=== PATIENT | female | born 1990 | race Caucasian/White ===

== ENCOUNTER 2017-06-23 22:38 | Outpatient (CLI) | payer BC ==
[2017-06-23 23:51] VITALS: BP 143/91; PULSE 98; RESP 16; TEMP 97.6
[2017-06-23 23:58] LABS: Appearance,Urine Cloudy (Clear); Bilirubin,Urine Negative (Negative); Glucose,Urine (UA) Negative (Negative); Ketones,Urine Negative (Negative); Leukocyte Esterase,Urine Negative (Negative); Nitrite,Urine Negative (Negative); Particle Count 5883; Protein,Urine Trace (Negative); RBC,Urine <1 /hpf (0-5); Specific Gravity,Urine 1.013 (1.001-1.035); Squamous Epithelial Cell,Urine 7 /hpf (0-4); UA Billing (MACRO vs. MICRO) MICRO; Urobilinogen,Urine <2.0 mg/dL (<2.0); WBC,Urine 1 /hpf (0-5)
[2017-06-23 23:59] LABS: Basophils % (A) 0 %; CH 32.2; CHCM 34.7; Eosinophils # (A) 0.2 k/uL (0-0.7); Eosinophils % (A) 1 %; HCT 35.6 % (34.0-46.0); HDW 2.71; Luc # (Auto) 0.24; Luc % (Auto) 2; Lymphocytes # (A) 2.4 k/uL (1.0-4.8); Lymphocytes % (A) 17 %; MCH 31.5 pg (25.0-35.0); MCHC 33.7 g/dL (31.0-37.0); MCV 93.6 fL (80.0-100.0); Monocytes # (A) 0.8 k/uL (0-1.0); Monocytes % (A) 6 %; Neutrophils # (A) 10.4 k/uL (1.3-7.7); Neutrophils % (A) 74 %; RBC 3.81 m/uL (3.80-5.40); RDW 14.2 % (11.5-15.5); WBC 14.1 k/uL (3.8-10.6); WBC (Perox) 15.09
[2017-06-24 00:10] LABS: ALT 35 U/L (9-52); AST 17 U/L (14-36); Blood Urea Nitrogen 5 mg/dL (7-17); LDH 394 U/L (313-618); Non-African American GFR(MDRD) >60 (>60 ml/min/1.73 sqM); Uric Acid 4.1 mg/dL (3.7-7.4)
--- NOTE | 2017-06-25 11:30 | P.MSEPDOC ---
Presenting Problems - Arrival Data Date of Arrival on Unit: 06/23/17 Time of Arrival on Unit: 22:38 Mode of Transport: Ambulatory - Complaint OB-Reason for Admission/Chief Complaint: Possible Onset of Labor, Rule Out SROM , Pain Comment: Patient states she started cindi regularly about every 3 minutes at home is unsure if her water broke around 2130 this evening because her panty liner was wet at this time when she went to the bathroom Medical History - Information : 2 Para: 1 Term: 1 : 0 Abortions: Spontaneous or Elective: 0 Number of Living Children: 1 - Gestational Age Gestational Age by ASHLEY (wks/days): 38 Weeks and 5 Days Review of Systems - Review of Systems Constitutional: No problems Breast: No problems ENT: No problems Cardiovascular: No problems Respiratory: No problems Gastrointestinal: No problems Genitourinary: No problems Musculoskeletal: No problems Neurological: No problems Skin: No problems Vital Signs - Temperature Temperature: 97.6 F Temperature Source: Temporal Artery Scan - Pulse Pulse Oximetery Pulse Rate: 98 Pulse Assessment Method: Automatic Cuff - Respirations Respiratory Rate: 16 Oxygen Delivery Method: Room Air - Blood Pressure Sitting Blood Pressure: 143/91 Blood Pressure Mean: 108 Blood Pressure Source: Automatic Cuff Medical Screen Scoring (Pre) - Cervical Exam Dilation: 1-3 cm = 1 Membranes: Intact - Uterine Contractions Frequency: > 5 minutes apart = 1 Duration: > 40 seconds = 2 Intensity: N/A - Maternal Vital Signs Maternal Temperature: N/A Maternal Blood Pressure: N/A Signs of Preeclampsia: N/A Maternal Respirations: N/A - Maternal Trauma Maternal Trauma: N/A - Assessment Baseline FHR: 130 Heart Rate - NICHD Category: Category I (Normal) = 0 NST: Reactive Position: N/A Station: N/A - Total Score Total Score (Pre): 4 - Level of Risk Level of Risk: Low (0-5) Physician Notification (Pre) - Physician Notified Physician Notified Date: 06/23/17 Physician Notified Time: 23:22 Physician/Practitioner Notifed:: Dr. Win New Order Received: Yes - Notification Comment Comment: orders given for PIH labs; CBC, Uric Acid, ALT, AST, BUN, Creatinine, LDH, and Urinalysis. Report lab findings back to physician. Physician called back at 0021 with report on PIH labs, states okay to discharge patient home with instructions at this time, patient to return to the office in the am for a blood pressure recheck. States no need to recheck cervix at this time. Disposition - Disposition OB Disposition: Discharge to home, Written follow up instructions reviewed Discharge Date: 06/24/17 Discharge Time: 00:30 I agree with the RN Medical Screening Exam: Yes Risk & Benefit of care provided described in d/c instruction: Yes Diagnosis: GESTATIONAL HTN W/O SIGNIFICANT PROTEINURIA, THIRD TRIMESTER
== END 2017-06-24 00:30 | disposition home or self-care (01) ==
LOC: FBPOP 22:38
PROVIDERS: ATTEND Obstetrics & Gynecology
DX: O13.4 Gestational [pregnancy-induced] hypertension without significant proteinuria, complicating childbirth (principal); Z3A.38 38 weeks gestation of pregnancy
CPT/HCPCS: 59025; 81001; 82565; 83615; 84112; 84450; 84460; 84520; 84550; 85025; 99215

== ENCOUNTER 2017-06-28 06:00 | Inpatient (IN) | payer BC ==
[2017-06-28 06:49] VITALS: BMI 36.8
[2017-06-28] MEDS ORDERED: LIDOCAINE 1% (PF) 10 MG/ML (30 ML SDV) SQ PRN (06:49)
[2017-06-28] MEDS ORDERED: CARBOPROST TROMETHAMINE 250 MCG/ML 1 ML AMP IM PRN (06:49)
[2017-06-28] MEDS ORDERED: OXYTOCIN 10 UNIT/ML 1 ML VIAL IM PRN (06:49)
[2017-06-28] MEDS ORDERED: TERBUTALINE 1 MG/ML VIAL SQ PRN (06:49)
[2017-06-28] MEDS ORDERED: METHYLERGONOVINE 0.2 MG/ML 1 ML AMP IM PRN (06:49)
[2017-06-28] MEDS: LACTATED RINGERS 1,000 ML IV SCH ×2 (06:59→09:37)
[2017-06-28] MEDS ORDERED: OXYTOCIN 20 UNITS/1000 ML NS 1,000 ML IV SCH (07:00)
[2017-06-28 07:04] LABS: Basophils % (A) 0 %; CH 31.5; CHCM 33.8; Eosinophils # (A) 0.2 k/uL (0-0.7); Eosinophils % (A) 1 %; HCT 35.4 % (34.0-46.0); HDW 2.74; Luc # (Auto) 0.23; Luc % (Auto) 2; Lymphocytes # (A) 2.7 k/uL (1.0-4.8); Lymphocytes % (A) 17 %; MCH 31.8 pg (25.0-35.0); MCHC 33.9 g/dL (31.0-37.0); MCV 93.7 fL (80.0-100.0); Mean Platelet Volume 7.4; Monocytes # (A) 0.6 k/uL (0-1.0); Monocytes % (A) 4 %; Neutrophils # (A) 12.1 k/uL (1.3-7.7); Neutrophils % (A) 77 %; RBC 3.78 m/uL (3.80-5.40); WBC 15.8 k/uL (3.8-10.6); WBC (Perox) 15.91
--- NOTE | 2017-06-28 07:35 | P.HPOB ---
History of Present Illness H&P Date: 06/28/17 Chief Complaint: Here for induction of labor, mild PIH This is a 27-year-old white female 2 para 1001 EDC 07/04/2017 at 39-2/7 weeks' gestation. Patient presents for elective induction of labor, with mild PIH. has otherwise been unremarkable. Fetus is been active throughout the . She denies uterine contractions, fluid leakage, or vaginal bleeding. Past medical history is significant for attention deficit hyperactivity disorder , and acid reflux. Past surgical history cholecystectomy 2014. Current medications dye clean just twice daily, [place] vitamins daily, probiotic daily, Zantac 150 milligrams daily, labetalol 100 mg twice daily started 2 days ago, last took last night. ALLERGIES none known. Family history significant for breast cancer diabetes and hypertension. Social history patient is , she works at a local restaurant, she has never been a smoker, she denies alcohol or drug use with the . history is significant for blood typ A+, rubella status immune. VDRL testing, urine culture, hepatitis B surface antigen, HIV testing, gonorrhea and chlamydia cultures, group B strep cultures all negative. One-hour Glucola 111. On exam this is a pleasant white female, she is 5 foot 3 inches, 208 pounds, blood pressure 142/76 on admission. The general physical exam is within normal limits. The chest is clear in all nuñez. The extremities reveal no edema. She is having mild uterine contractions every 4-5 minutes apart spontaneously. heart rate is in the 130s with frequent accelerations, consistent with reactive NST. Cervix is 4 cm dilated, 70% effaced, -2 station, vertex presentation, anterior, soft. Artificial amniorrhexis reveals clear fluid. Impression: 39-2/7 weeks intrauterine , favorable multiparous cervix, here for induction of labor with mild PIH, blood pressure reassuring this morning. Plan: Oxytocin per hospital protocol. Close maternal and surveillance. Anticipate normal spontaneous vaginal delivery. Past Medical History Past Medical History: GERD/Reflux Additional Past Medical History / Comment(s): HX OF ANEMIA. History of Any Multi-Drug Resistant Organisms: None Reported Past Surgical History: No Surgical Hx Reported Additional Past Surgical History / Comment(s): UPPER ENDOSCOPY IN DECEMBER 2014 ONLY. Past Anesthesia/Blood Transfusion Reactions: No Reported Reaction Additional Past Anesthesia/Blood Transfusion Reaction / Comment(s): HAS NEVER RECEIVED ANESTHESIA Past Psychological History: No Psychological Hx Reported Smoking Status: Never smoker Past Alcohol Use History: Rare Past Drug Use History: None Reported - Past Family History Mother Family Medical History: No Reported History Medications and Allergies Home Medications Medication Instructions Recorded Confirmed Type Ranitidine HCl [Zantac] 150 mg PO BID 12/28/14 06/28/17 History Pnv No.95/Ferrous Fum/Folic AC 1 tab PO DAILY 06/23/17 06/28/17 History [ Multivitamin Tablet] Labetalol [Trandate] 100 mg PO BID 06/28/17 06/28/17 History Allergies Allergy/AdvReac Type Severity Reaction Status Date / Time No Known Allergies Allergy Verified 06/23/17 22:40 Exam - Vital Signs Vital signs: Vital Signs Temp Pulse Resp BP 06/28/17 06:26 98.7 F 90 16 142/76 Intake and Output 06/27/17 06/28/17 06/28/17 22:59 06:59 14:59 Other: Weight 94.347 kg Results Result Diagrams: 06/28/17 06:45 Abnormal Lab Results - Last 24 Hours (Table) 06/28/17 Range/Units 06:45 WBC 15.8 H (3.8-10.6) k/uL RBC 3.78 L (3.80-5.40) m/uL Neutrophils # 12.1 H (1.3-7.7) k/uL
[2017-06-28 07:55] LABS: INR 0.9 (<1.2); Prothrombin Time 9.6 sec (9.0-12.0)
[2017-06-28] MEDS ORDERED: SODIUM CHLORIDE 0.9% 100 ML BAG ONE (09:55)
[2017-06-28] MEDS ORDERED: BUPIVACAINE (PF) 0.25% 30 ML VIAL ONE (09:55)
[2017-06-28] MEDS ORDERED: fentaNYL (PF) 50 MCG/ML 5 ML AMP ONE (09:55)
[2017-06-28] MEDS ORDERED: LANOLIN CREAM 5 GM TUBE TOPICAL PRN (11:10)
[2017-06-28] MEDS ORDERED: diphenhydrAMINE 50 MG/ML 1 ML VIAL IVP PRN ×2 (11:10)
[2017-06-28] MEDS ORDERED: HYDROCORTISONE 2.5% RECTAL CREAM 30 GM TUBE RECTAL PRN (11:10)
[2017-06-28] MEDS ORDERED: BENZOCAINE/MENTHOL SPRAY 1 GM/SPRAY AEROSOL TOPICAL PRN (11:10)
[2017-06-28] MEDS ORDERED: Acetaminophen-Codeine 300-30mg TAB PO PRN (11:10)
[2017-06-28] MEDS ORDERED: diphenhydrAMINE 25 MG CAP PO PRN (11:10)
[2017-06-28] MEDS ORDERED: SIMETHICONE 80 MG CHEWABLE PO PRN (11:10)
[2017-06-28] MEDS ORDERED: diphenhydrAMINE ELIXIR 25 MG/10 ML CUP PO PRN (11:10)
[2017-06-28] MEDS ORDERED: WITCH HAZEL 1 EACH MED..PAD TOPICAL PRN (11:10)
[2017-06-28] MEDS ORDERED: diphenhydrAMINE 50 MG CAP PO PRN (11:10)
[2017-06-28] MEDS ORDERED: ZOLPIDEM 5 MG TAB PO PRN (11:10)
--- NOTE | 2017-06-28 11:10 | P.PROBDLV ---
Vaginal Delivery Note - . Vaginal Delivery Note: This is a 27-year-old white female 2 para 1001 EDC 07/03/2017 at 39-2/7 weeks' gestation. Patient presented for induction for mild -induced hypertension, just started oral labetalol 3 days ago. Admitting blood pressure 140/76. She denies headache visual changes or right upper quadrant pain. Fetus is been active throughout the . She denies vaginal bleeding or fluid leakage. Please see my dictated history and physical for details. Upon admission patient 's artificial amniorrhexis revealed clear fluid, she was 4 cm dilated. Oxytocin was started and titrated per hospital protocol. She requested epidural and this was placed without difficulty. She progressed through the first stage of labor easily, became completely dilated at 1047 hrs. The perineal body was prepped and draped in usual sterile fashion. With excellent maternal expulsive efforts the 's head delivered occiput anterior and restituted accordingly. There was no nuchal cord noted. The left or anterior shoulder was delivered from underneath the pubic symphysis at which time the oropharynx, nasopharynx, and external nares were bulb suctioned on the perineal body. Patient was officially delivered of a liveborn male at 1055 hrs. Umbilical cord was doubly clamped and ligated, he was handed to waiting nurses for evaluation, scores of 9 and 9 at one and 5 minutes respectively were given. The uterus is then massaged. The placenta delivered spontaneously, it was inspected and noted to be intact with trivascular cord at 1057 hrs. It is being sent to pathology for history of mild PIH. The uterus is then massaged. Inspection of the cervix, vagina, perineum, periurethral, and perirectal areas reveals a very small first-degree perineal laceration at 6:00. This is reapproximated with a single [id number] suture of 3-0 Vicryl. Estimated blood loss 300 mL's. All sponge needle and enhancement counts are correct at the end of the procedure. weighs 3420 g or 7 lbs. 9 oz. They are requesting circumcision further infant son. We will monitor blood pressures now that the patient has delivered and make a decision regarding antihypertensive medications accordingly.
[2017-06-28] MEDS: IBUPROFEN 600 MG TAB PO PRN ×2 (12:03→19:57)
[2017-06-28] MEDS: ACETAMINOPHEN TAB 325 MG TAB PO PRN (18:04)
[2017-06-28] MEDS: SENNOSIDES-DOCUSATE SODIUM 1 EACH TAB PO SCH (19:56)
[2017-06-28] MEDS ORDERED: LABETALOL 100 MG TAB PO PRN (22:18)
--- NOTE | 2017-06-29 11:32 | P.DS ---
Providers Date of admission: 06/28/17 06:21 Expected date of discharge: 06/29/17 Attending physician: Elda Gale Primary care physician: Levi Polanco [facility] Course: This is a 27-year-old white female 2 para 1001 EDC 07/03/2017 at 39-2/7 weeks' gestation. Patient presented for induction for mild -induced hypertension over the past several days. Fetus is been active throughout the . Blood type A positive, rubella status immune, group B strep cultures negative. Please see dictated history and physical for details. Blood pressure on admission 142/76. Artificial amniorrhexis revealed clear fluid. Epidural was placed per her request. She went on to swiftly deliver a liveborn male with scores of 9 and 9 at one and 5 minutes respectively. Infant weighed 7 lbs. 9 oz. or 3420 g. Estimated blood loss 300 mL's. There was a small first-degree perineal laceration easily repaired. Please see my dictated delivery note for details. This morning the patient is doing well. She had emesis 1 after pain medication , no nausea or vomiting at this time. She is feeling somewhat anxious, in tearful to go home to her 3-year-old child. Her bleeding is minimal, perineal body is intact, extremities are revealing +1 edema, 2+ reflexes, no clonus. Chest is clear in all nuñez. The patient denies headache visual changes or right upper quadrant pain. Blood pressure is 130s to 140s over 70s to 80s. Pulse is 70-80. Breast-feeding is going well. Napoleon circumcision will be performed at this time. I feel patient is in good condition for discharge home later today. I have reminded her no intercourse tampons or douching. She will be aware and contact me with any headaches, visual changes, or right upper quadrant pain. She will follow-up in the office with me in 1 week for blood pressure check. We have briefly contemplated options for contraception and we will discuss this further in the office. Call with any fevers shakes or chills, foul smelling or copious lochia, passage of large blood clots, with any pain not alleviated by over-the- counter products, or indeed with any concerns. We will begin Zoloft 50 mg once daily at this time, a prescription has been provided for same. Patient has no suicidal or homicidal ideation, chest is somewhat anxious to go home and has a history of previous SSRI use. Patient Condition at Discharge: Good Plan - Discharge Summary New Discharge Prescriptions: No Action Ranitidine HCl [Zantac] 150 mg PO BID Pnv No.95/Ferrous Fum/Folic AC [ Multivitamin Tablet] 1 tab PO DAILY Labetalol [Trandate] 100 mg PO BID Discharge Medication List Ranitidine HCl [Zantac] 150 mg PO BID 12/28/14 [History] Pnv No.95/Ferrous Fum/Folic AC [ Multivitamin Tablet] 1 tab PO DAILY [History] Labetalol [Trandate] 100 mg PO BID 06/28/17 [History]
[2017-06-29] MEDS: IBUPROFEN 600 MG TAB PO PRN (12:50)
[2017-06-29] MEDS: ACETAMINOPHEN TAB 325 MG TAB PO PRN (17:42)
[2017-06-29] MEDS: SENNOSIDES-DOCUSATE SODIUM 1 EACH TAB PO SCH (17:42)
[2017-06-29] MEDS ORDERED: SERTRALINE 50 MG TAB PO SCH (19:00)
[2017-06-29] MEDS ORDERED: NIFEdipine XL 30 MG TAB.ER.24 PO SCH (20:15)
[2017-06-29] MEDS: NIFEdipine XL 30 MG TAB.ER.24 PO SCH (20:59)
[2017-06-30] MEDS: IBUPROFEN 600 MG TAB PO PRN ×2 (00:17→14:59)
[2017-06-30] MEDS: SENNOSIDES-DOCUSATE SODIUM 1 EACH TAB PO SCH ×2 (00:38→07:40)
[2017-06-30 07:37] VITALS: RESP 18
--- NOTE | 2017-06-30 08:03 | P.DS ---
Providers Date of admission: 06/28/17 06:21 Expected date of discharge: 06/30/17 Attending physician: Elda Gale Primary care physician: Levi A [facility] Course: This is an addendum to the previously dictated discharge summary from yesterday. Patient was just started on Procardia XL 30 mg yesterday for mildly elevated blood pressures. Blood pressures remained 140s over 90s, and the patient did have emesis. Decision was made to hold the discharge until this morning. Patient's blood pressures continued to be 130s to 140s over 80s to 90s. She however feels better, nausea has improved. She slept through the night. She denies headache visual changes or right upper quadrant pain. Zoloft was started as well yesterday, 50 mg once daily. On exam patient has minimal peripheral edema, +1 reflexes, fundus firm and in the midline, symmetric and 18 week size. The second dose of Procardia will be given this morning. My plan is for discharge home later today. Patient has a stable manometer at home and will take her blood pressures twice daily. She will call me if they are consistently greater than 140s systolic, or 90s diastolic. She will call me with any fever shakes or chills, foul smelling or copious lochia, with any headaches, visual changes, or right upper quadrant pain. I will see the patient in the office in 1 week with her blood pressure log for further recommendations, or as clinically indicated. Patient Condition at Discharge: Good Plan - Discharge Summary New Discharge Prescriptions: No Action Ranitidine HCl [Zantac] 150 mg PO BID Pnv No.95/Ferrous Fum/Folic AC [ Multivitamin Tablet] 1 tab PO DAILY Labetalol [Trandate] 100 mg PO BID Discharge Medication List Ranitidine HCl [Zantac] 150 mg PO BID 12/28/14 [History] Pnv No.95/Ferrous Fum/Folic AC [ Multivitamin Tablet] 1 tab PO DAILY [History] Labetalol [Trandate] 100 mg PO BID 06/28/17 [History] Follow up Appointment(s)/Referral(s): Elda Gale MD [STAFF PHYSICIAN] - 1 Week Discharge Disposition: HOME SELF-CARE
[2017-06-30] MEDS: NIFEdipine XL 30 MG TAB.ER.24 PO SCH (08:19)
[2017-06-30] MEDS: ACETAMINOPHEN TAB 325 MG TAB PO PRN (10:41)
[2017-06-30 12:05] VITALS: BP 133/69; PULSE 93; TEMP 98.2
== END 2017-06-30 15:50 | disposition home or self-care (01) | DRG 775 ==
LOC: 4FBP 06:21
PROVIDERS: ADMIT Obstetrics & Gynecology; ATTEND Obstetrics & Gynecology
PROC: 10E0XZZ Delivery of Products of Conception, External Approach (ICD-10-PCS; principal; 2017-06-28)
PROC: 0HQ9XZZ Repair Perineum Skin, External Approach (ICD-10-PCS; 2017-06-28)
PROC: 3E033VJ Introduction of Other Hormone into Peripheral Vein, Percutaneous Approach (ICD-10-PCS; 2017-06-28)
PROC: 00HU33Z Insertion of Infusion Device into Spinal Canal, Percutaneous Approach (ICD-10-PCS; 2017-06-28)
DX: O13.4 Gestational [pregnancy-induced] hypertension without significant proteinuria, complicating childbirth (principal); O99.344 Other mental disorders complicating childbirth; F90.9 Attention-deficit hyperactivity disorder, unspecified type; O99.62 Diseases of the digestive system complicating childbirth; K21.9 Gastro-esophageal reflux disease without esophagitis; O70.0 First degree perineal laceration during delivery; R11.2 Nausea with vomiting, unspecified; Z37.0 Single live birth; Z3A.39 39 weeks gestation of pregnancy; Z80.3 Family history of malignant neoplasm of breast; Z82.49 Family history of ischemic heart disease and other diseases of the circulatory system; Z83.3 Family history of diabetes mellitus
CPT/HCPCS: 85025; 85610; 85730; 88307